=== PATIENT | female | born 1990 | race Caucasian/White ===

== ENCOUNTER → 2016-10-15 | Outpatient (CLI) | payer BC ==
[~2016-10-15] MED LIST: ACET50TA PO; IBUP100SUS PO
--- NOTE | 2016-10-15 09:54 | REP ---
OBSTETRIC SONOGRAPHY: HISTORY: Supervision of , followup anatomy. FINDINGS: Scanning demonstrates a viable single intrauterine gestation in a cephalic lie. motion is observed and heart rate is recorder 135 beats per minute. A posterior grade 0 placenta is seen without evidence of previa or abruption. Amniotic fluid is subjectively normal. Closed cervical length is measured at 4.9 cm transabdominally. No extrauterine abnormality is observed. There has been appropriate interval growth of the fetus. No anomaly is seen. The following anatomic structures are identified and felt to be sonographically unremarkable today: cranium, choroid plexus, cavum, cerebellum and posterior fossa, face and profile, lungs, four-chamber heart with left and right ventricular outflow tract views, diaphragm, left-sided stomach, abdominal wall cord insertion, three-vessel cord, kidneys and bladder, spine, upper and lower extremities. Biometry Chart: BPD 6.7 cm = 27 weeks 0 days HC 24.3 cm = 26 weeks 2 days AC 22.1 cm = 26 weeks 4 days FL 5.1 cm = 27 weeks 1 day HL 4.7 cm = 27 weeks 4 days CD 3.3 cm = 28 weeks 3 days HC/AC ratio normal 1.10. Cephalic index normal 0.78. Estimated weight 980 grams, 2 pounds 2 ounces, 34th percentile for 27 weeks 1 day. IMPRESSION: Viable single intrauterine gestation at 27 weeks 1 day by today's composite sonographic criteria. Expected gestational age estimate based on prior sonography is 27 weeks 1 day as well. COLIN by prior sonography January 13, 2017. anatomic survey is felt to be complete. Signed by Rusty Allen MD 10/15/2016 02:31 P
[2016-10-15 10:29] LABS: MEAN CORPUSCULAR HEMOGLOBIN 30.7 pg (27.0-33.0); MEAN CORPUSCULAR HGB CONC 33.2 g/dl (32.0-36.5); MEAN CORPUSCULAR VOLUME 92.6 fl (80.0-96.0); RED CELL DISTRIBUTION WIDTH 12.7 % (11.5-14.5); WHITE BLOOD COUNT 9.4 K/mm3 (4.0-10.0)
== END ==
LOC: M RAD 08:39
PROVIDERS: ATTEND Advanced Practice Midwife
DX: Z36 Encounter for antenatal screening of mother (principal); Z3A.27 27 weeks gestation of pregnancy

== ENCOUNTER → 2016-12-25 | Outpatient (REF) | payer BC | LOC: M LAB REF 12:49 | PROVIDERS: ATTEND Advanced Practice Midwife | DX: Z36 Encounter for antenatal screening of mother (principal); Z3A.00 Weeks of gestation of pregnancy not specified ==

== ENCOUNTER 2017-01-23 03:57 | Inpatient (IN) | payer BC ==
[2017-01-23] VITALS (28 sets, daily range): BP systolic 107–134; BP diastolic 60–82
[~2017-01-23] VITALS: Ht 180.3 cm; Wt 96.0 kg
[2017-01-23 05:15] LABS: MEAN CORPUSCULAR HEMOGLOBIN 27.1 pg (27.0-33.0); MEAN CORPUSCULAR HGB CONC 32.6 g/dl (32.0-36.5); MEAN CORPUSCULAR VOLUME 83.1 fl (80.0-96.0); RED CELL DISTRIBUTION WIDTH 12.5 % (11.5-14.5); WHITE BLOOD COUNT 8.9 K/mm3 (4.0-10.0)
--- NOTE | 2017-01-23 06:36 | HPE ---
DATE OF ADMISSION: 01/23/2017 REASON FOR ADMISSION: Premature rupture of membranes. HISTORY OF PRESENT ILLNESS: Mrs. Cantrell is a 26-year-old 2, para 1 who presents at 40 weeks, 2 days estimated gestational age by last menstrual period confirmed by first trimester ultrasound with complaints of leakage of clear fluid. She reports this occurred at approximately 3 a.m. She has had some irregular contractions, denies any vaginal bleeding or decreased movements. Her course has been unremarkable. She initiated care in her first trimester and has been appropriate throughout. PAST MEDICAL HISTORY: None. PAST SURGICAL HISTORY: None. PAST OBSTETRICAL HISTORY: She is 2, para 1. She has had a term vaginal delivery of a male infant. She has proven to 8 pounds, 12 ounces. MEDICATIONS: - vitamins - Colace ALLERGIES: No known drug allergies. SOCIAL HISTORY: She denies any alcohol, tobacco or drug use during her . PHYSICAL EXAMINATION: VITAL SIGNS: Stable. She is afebrile. She has a category I heart tracing with some irregular contractions on the tocometer. GENERAL APPEARANCE: Well appearing, no acute distress. LUNGS: Clear to auscultation bilaterally. CARDIOVASCULAR: Heart regular rate and rhythm. ABDOMEN: Soft, gravid. Estimated weight (EFW) 3600 grams. CERVICAL EXAM: She was 2 centimeters dilated, 80% effaced, -2 station and grossly ruptured. LABORATORY DATA: Blood type is A positive, antibody screen is negative. Rubella immune, RPR nonreactive. Hepatitis surface antigen is negative. HIV is negative. Hepatitis C is nonreactive. Chlamydia and gonorrhea screens are negative. She had a normal one hour Glucola. She is Group B Streptococcus (GBS) negative. ASSESSMENT: 1. Mrs. Cantrell is a 26-year-old 2, para 1 at 40 weeks, 2 days estimated gestational age with premature rupture of membranes. 2. Reassure status. PLAN: 1. The plan is to admit to labor and delivery, CBC, RPR, type and screen. 2. The patient has been thoroughly counseled in terms of admission to labor. I discussed augmentation of her labor with Pitocin. She is verbally consented for emergency surgery, blood products and anesthesia. She desires to proceed with admission. The plan is to reevaluate in two hours and if her exam is unchanged will proceed with augmentation with Pitocin. 3. Anticipate spontaneous vaginal delivery. MTDD
[2017-01-23] MEDS ORDERED: OXYTOCIN DRIP 30 UNITS in APPROPRIATE DILUENT 1 EA IV SCH (08:00)
[2017-01-23] MEDS ORDERED: LR 1,000 ML IV SCH (12:15)
[2017-01-23] MEDS ORDERED: BUTORPHANOL 2 MG/ML INJ (J0595) IV ONE (18:45)
[2017-01-23] MEDS ORDERED: PROMETHAZINE INJ 25 MG/ML VIAL (J2550) IV ONE (18:45)
[2017-01-23] MEDS ORDERED: PROMETHAZINE INJ 25 MG/ML VIAL (J2550) As Ordered ONE (18:52)
[2017-01-23] MEDS ORDERED: BUTORPHANOL 2 MG/ML INJ (J0595) As Ordered ONE (18:52)
[2017-01-23] MEDS ORDERED: NALOXONE INJ 0.4 MG/1 ML VIAL (J2310) As Ordered ONE (19:51)
[2017-01-23] MEDS ORDERED: METHYLERGONOVINE MALEATE 0.2 MG TAB PO PRN (20:45)
[2017-01-23] MEDS ORDERED: RHOGAM 300 MCG (1500 IU) INJ (J2790) IM SCH (20:45)
[2017-01-23] MEDS ORDERED: DOCUSATE SODIUM 100 MG CAP PO PRN (20:45)
[2017-01-23] MEDS ORDERED: IBUPROFEN 800 MG TAB PO PRN (20:45)
[2017-01-23] MEDS ORDERED: MEASLES,MUMPS,RUBELLA VACCINE INJ (MMR-II) (90707) SC SCH (20:45)
[2017-01-23] MEDS ORDERED: OXYTOCIN DRIP 30 UNITS in APPROPRIATE DILUENT 1 EA IV ONE (20:45)
[2017-01-23] MEDS ORDERED: ONDANSETRON 4MG/2ML VIAL (J2405) IV PRN (20:45)
[2017-01-23] MEDS ORDERED: ACETAMINOPHEN 500 MG TAB PO PRN (20:45)
[2017-01-23] MEDS ORDERED: DIBUCAINE 1% OINTMENT 30GM TOP PRN (20:45)
--- NOTE | 2017-01-24 01:29 | DN ---
DATE: 01/23/2017 PREDELIVERY DIAGNOSIS: A 40+ weeks gestation, labor. POSTOPERATIVE DIAGNOSIS: A 40+ weeks gestation, labor. PROCEDURE: Spontaneous vaginal delivery. ADMITTING COORDINATOR: Dr. Elvin Scott ANESTHESIA: None. ESTIMATED BLOOD LOSS: 300 mL. FINDINGS: A 9-pound 7-ounce female infant. scores 8 and 9. DELIVERY SUMMARY: After a short second stage, patient had a spontaneous delivery of a 9-pound 7-ounce female infant, scores 8 and 9. No delivery anesthesia. Shoulders delivered spontaneously with ease. The cried spontaneously and was handed to the mother. The cord was doubly clamped and cut. Placenta delivered spontaneously and appeared to be intact. The patient received intravenous (IV) Pitocin immediately after delivery of the placenta. There were no vaginal lacerations present. Sponge counts were correct.
[2017-01-24 05:49] VITALS: BP 120/69
[2017-01-24] MEDS: PRENATAL VITAMIN TAB PO SCH (07:49)
[2017-01-24 18:00] VITALS: BP 130/68
[2017-01-25 06:51] VITALS: BP 122/55
[2017-01-25] MEDS: PRENATAL VITAMIN TAB PO SCH (09:00)
[2017-01-25] MEDS ORDERED: IBUP-1114 PO (11:07)
[2017-01-25] MEDS ORDERED: PRENTAB9 PO (11:07)
[2017-01-25] MEDS ORDERED: ACET50TA PO (11:07)
== END 2017-01-25 11:40 | disposition home or self-care (01) | DRG 560 ==
LOC: M LDO 03:57 → M LDI 04:49 → M OBS 22:28
PROVIDERS: ADMIT Obstetrics & Gynecology; ATTEND Obstetrics & Gynecology
PROC: 10E0XZZ Delivery of Products of Conception, External Approach (ICD-10-PCS; principal; 2017-01-23)
DX: O42.02 Full-term premature rupture of membranes, onset of labor within 24 hours of rupture (principal); O48.0 Post-term pregnancy; Z37.0 Single live birth; Z3A.40 40 weeks gestation of pregnancy

== ENCOUNTER → 2017-04-07 | Day surgery (SDC) | payer BC ==
[~2017-04-07] VITALS: Ht 180.3 cm; Wt 95.7 kg
[~2017-04-07] MED LIST changes: +BUPIVACAINE HCL 0.25% 10 ML VIAL As Ordered ONE; +GLYCOPYRROLATE INJ 0.2 MG/ML 2 ML VIAL As Ordered ONE; +HYDROmorphone HCL 2 MG/ML 1ML VIAL (J1170) As Ordered ONE; +IBUP-1114 PO; +KETOROLAC 30 MG/ML VIAL (J1885) IV SCH; +KETOROLAC 60 MG/2 ML VIAL (J1885) As Ordered ONE; +LR 1,000 ML IV SCH; +METOCLOPRAMIDE INJ 10MG/2ML VIAL (J2765) As Ordered ONE; +MIDAZOLAM INJ 2 MG/2 ML VIAL (J2250) As Ordered ONE; +NEOSTIGMINE 1MG/ML 5 ML SYRINGE (J2710) As Ordered ONE; +ONDANSETRON 4MG/2ML VIAL (J2405) As Ordered ONE; +ONDANSETRON 4MG/2ML VIAL (J2405) IV PRN; +PERCOCET 5MG/325MG TAB PO PRN; +PRENTAB9 PO; +PROPOFOL 500 MG/50 ML VIAL As Ordered ONE; +ROCURONIUM BROMIDE 50 MG/5 ML VIAL/SYRINGE As Ordered ONE; +dexameTHASONE 4 MG/ML 1ML VIAL (J1100) As Ordered ONE; +fentaNYL 100 MCG/2 ML INJECTION (J3010) As Ordered ONE; +fentaNYL 100 MCG/2 ML INJECTION (J3010) IV PRN
[2017-04-07 06:36] LABS: MEAN CORPUSCULAR HEMOGLOBIN 26.7 pg (27.0-33.0); MEAN CORPUSCULAR HGB CONC 31.9 g/dl (32.0-36.5); MEAN CORPUSCULAR VOLUME 83.8 fl (80.0-96.0); WHITE BLOOD COUNT 7.2 K/mm3 (4.0-10.0)
[2017-04-07 06:52] LABS: CONTROL LINE HCG INT CTR LINE PRESENT
--- NOTE | 2017-04-07 08:30 | RO ---
DATE OF PROCEDURE: 04/07/2017 PREPROCEDURE DIAGNOSES: Satisfied parity with undesired fertility. POSTPROCEDURE DIAGNOSES: Satisfied parity with undesired fertility. PROCEDURE: Diagnostic operative laparoscopy with bilateral tubal ligation using Filshie clips. SURGEON: Elizabeth Tello M.D. SOW FARM MANAGER: none ANESTHESIA: General endotracheal anesthesia. ESTIMATED BLOOD LOSS: 5 mL. INTRAVENOUS FLUIDS: 1 liter of lactated Ringer solution. URINE OUTPUT: 400 mL. SPECIMENS: None. PREOPERATIVE ANTIBIOTICS: None. INFECTION CLASSIFICATION: 1. OPERATIVE FINDINGS: Patient is a 26-year-old 2 para 2 who has expressed satisfied parity with undesired fertility issues and counseled on all alternative options for contraception, desired permanent sterilization. Patient with normal appearing uterus, bilateral adnexa. Appendix appeared to be normal and normal appearing liver edge and gallbladder. DESCRIPTION OF OPERATION: After informed consent was obtained and written consent was reviewed, the patient was brought to the operating room where general endotracheal anesthesia was obtained. She was then placed in the lithotomy position, and was prepped and draped in a normal sterile fashion. A time out in the operating room was then performed identifying the patient, procedure to be performed as well as drug allergies. A bivalve speculum was then placed in the vagina revealing the cervix. The anterior lip of the cervix was grasped with a single tooth tenaculum. A Hulka tenaculum was then advanced through the cervical os for means to manipulate the uterus. The single tooth tenaculum and speculum was removed. A Rankin catheter was placed and set to gravity. Gloves were changed and attention was turned to the patient's abdomen where 0.25% Marcaine was infused in umbilical region. An incision was made in this area and a 5 mm trocar and sleeve was advanced through the incision. The laparoscope was replaced revealing intra-abdominal placement. Pneumoperitoneum was then obtained using CO2 gas. The abdomen was then surveyed showing normal uterus, bilateral adnexa. Appendix was visualized and appeared to be normal. Normal appearing liver edge and gallbladder. A second port was placed. This was approximately 2 cm above the pubis symphysis in the midline. This area was infused with 0.25% Marcaine. Incision was made in this area and an 8 mm trocar and sleeve was advanced through this incision. Left fallopian tube was followed out to the fimbriated end using a Filshie clip applicator. A Filshie clip was applied in mid isthmic portion of the left fallopian tube with good blanching noted. The Filshie clip applicator was reloaded. The right fallopian tube was then followed out to the fimbriated end in a similar fashion. Filshie clip was applied in mid isthmic portion of that fallopian tube with good blanching noted. The pneumoperitoneum was then released. Trocars and instruments were removed. Incisions were closed with #4-0 Monocryl and was dressed with Dermabond. The Hulka tenaculum was then removed. Tenaculum sites were noted to be hemostatic. Rankin catheter was also removed. The patient was then awakened from general anesthesia and taken to recovery in stable condition. Counts were correct. MTDD
[2017-04-07 09:35] VITALS: BP 120/76
== END | disposition home or self-care (01) ==
LOC: M SDC 06:18
PROVIDERS: ATTEND Obstetrics & Gynecology
DX: Z30.2 Encounter for sterilization (principal)
CPT/HCPCS: 36415; 58671; 84703; 85027; 86850; 86900; 86901; A4649; J1100; J1170; J1885; J2250; J2405; J2710; J2765; J3010

== ENCOUNTER 2017-11-14 00:12 | Inpatient (IN) | payer BC ==
[2017-11-14 01:42] LABS: CONTROL LINE UCG INT CTR LINE PRESENT; URINE PREG TEST NEGATIVE (NEGATIVE)
[2017-11-14 01:43] LABS: BASO # 0.1 10^3/uL (0.0-0.2); BASO % 0.4 % (0.0-1.0); EOS % 0.3 % (0.0-3.0); HEMOGLOBIN 12.8 g/dl (12.0-16.0); IMMATURE GRANULOCYTE % 0.3 % (0-3.0); KETONE, URINE AUTO RFX NEGATIVE (NEGATIVE); LEUKOCYTE ESTERASE UR AUTO RFX NEGATIVE (NEGATIVE); LYMPH # 1.4 10^3/uL (1.5-6.5); LYMPH % 11.7 % (24.0-44.0); MEAN CORPUSCULAR HEMOGLOBIN 27.1 pg (27.0-33.0); MEAN CORPUSCULAR VOLUME 84.7 fl (80.0-96.0); MONO # 0.7 10^3/uL (0.0-0.8); MONO % 6.1 % (0.0-5.0); MUCUS, URINE RFX SMALL (NEGATIVE); NEUTROPHILS # 9.6 10^3/uL (1.8-7.7); NEUTROPHILS % 81.2 % (36.0-66.0); NITRITE, URINE AUTO RFX NEGATIVE (NEGATIVE); PLATELET COUNT, AUTOMATED 317 10^3/uL (150-450); RBC, URINE AUTO RFX 1 /HPF (0-3); RED BLOOD COUNT 4.72 10^6/uL (4.00-5.40); RED CELL DISTRIBUTION WIDTH 13.5 % (11.5-14.5); SPECIFIC GRAVITY UR AUTO RFX 1.021 (1.002-1.035); SQUAM EPITHELIAL CELL UR AURFX 0 /HPF (0-6); WBC, URINE AUTO RFX 0 /HPF (0-3); WHITE BLOOD COUNT 11.8 10^3/uL (4.0-10.0)
[2017-11-14 02:27] LABS: ANION GAP 7 MEQ/L (8-16); BLOOD UREA NITROGEN 14 MG/DL (7-18); CALCIUM LEVEL 8.8 MG/DL (8.5-10.1); CARBON DIOXIDE LEVEL 28 MEQ/L (21-32); CHLORIDE LEVEL 108 MEQ/L (98-107); CREATININE FOR GFR 0.78 MG/DL (0.55-1.30); GLOMERULAR FILTRATION RATE > 60.0 (>60); GLUCOSE, FASTING 116 MG/DL (70-100); POTASSIUM SERUM 4.6 MEQ/L (3.5-5.1); SODIUM LEVEL 143 MEQ/L (136-145)
[2017-11-14 02:51] LABS: ALBUMIN 3.7 GM/DL (3.2-5.2); ALBUMIN/GLOBULIN RATIO 1.06 (1.00-1.93); ALKALINE PHOSPHATASE 104 U/L (45-117); ALT/SGPT 104 U/L (12-78); AST/SGOT 160 U/L (7-37); BILIRUBIN,DIRECT 0.3 MG/DL (0.0-0.2); BILIRUBIN,TOTAL 0.6 MG/DL (0.2-1.0); LIPASE 243 U/L (73-393); TOTAL PROTEIN 7.2 GM/DL (6.4-8.2)
[2017-11-14] MEDS: LR 1,000 ML IV ×3 (03:23→22:08)
[2017-11-14] MEDS ORDERED: MORPHINE 4 MG/ML 1ML VIAL (J2270) IV (03:30)
[2017-11-14] MEDS ORDERED: NORCO, ANEXSIA 5/325MG TABLET (HYDROcodone/ACETAMINOPHEN) PO (03:30)
[2017-11-14] MEDS: AMPICILLIN SOD/SULBACTAM SOD 3 GM in D5W MINI-BAG PLUS 100 ML IV ×4 (04:28→20:15)
[2017-11-14] MEDS: ONDANSETRON 4MG/2ML VIAL (J2405) IV (14:17)
[2017-11-14] MEDS ORDERED: ONDANSETRON 4MG/2ML VIAL (J2405) As Ordered (18:57)
[2017-11-14] MEDS ORDERED: LIDOCAINE 2% INJ 100 MG/5 ML SDV (FOR ANES.) As Ordered (18:57)
[2017-11-14] MEDS ORDERED: MIDAZOLAM INJ 2 MG/2 ML VIAL (J2250) As Ordered (18:57)
[2017-11-14] MEDS ORDERED: NEOSTIGMINE 10 MG/10 ML VIAL (J2710) As Ordered (18:57)
[2017-11-14] MEDS ORDERED: GLYCOPYRROLATE INJ 0.2 MG/ML 2 ML VIAL As Ordered (18:57)
[2017-11-14] MEDS ORDERED: PROPOFOL 200 MG/20 ML VIAL As Ordered (18:57)
[2017-11-14] MEDS ORDERED: dexameTHASONE 4 MG/ML 1ML VIAL (J1100) As Ordered (18:57)
[2017-11-14] MEDS ORDERED: ROCURONIUM BROMIDE 50 MG/5 ML VIAL As Ordered ×2 (18:57→20:38)
[2017-11-14] MEDS ORDERED: KETOROLAC 60 MG/2 ML VIAL (J1885) As Ordered (18:58)
[2017-11-14] MEDS ORDERED: fentaNYL 100 MCG/2 ML INJECTION (J3010) As Ordered ×2 (18:58→20:29)
[2017-11-14] MEDS ORDERED: UNASYN 1.5 GM VIAL As Ordered (19:50)
[2017-11-14] MEDS: BUPIVACAINE HCL 0.25% 30 ML VIAL As Ordered (20:25)
[2017-11-14] MEDS: LIDOCAINE 1% SDV INJ 30 ML VIAL As Ordered (20:25)
[2017-11-14] MEDS ORDERED: SUGAMMADEX SODIUM 500 MG/5 ML VIAL (BRIDION) As Ordered (20:57)
[2017-11-14] MEDS: PERCOCET 5MG/325MG TAB PO (21:25)
[2017-11-14] MEDS ORDERED: PERCOCET 5MG/325MG TAB As Ordered (21:27)
[2017-11-14] MEDS ORDERED: fentaNYL 100 MCG/2 ML INJECTION (J3010) IV (21:30)
[2017-11-14] MEDS ORDERED: MEPERIDINE INJ 25 MG/ML VIAL (J2175) IV (21:30)
[2017-11-14] MEDS ORDERED: METOCLOPRAMIDE INJ 10MG/2ML VIAL (J2765) IV (21:30)
[2017-11-14] MEDS ORDERED: ONDANSETRON 4MG/2ML VIAL (J2405) IV (21:30)
[2017-11-14] MEDS ORDERED: LR 1,000 ML IV (21:30)
[2017-11-15] MEDS: LR 1,000 ML IV (03:23)
[2017-11-15] MEDS: AMPICILLIN SOD/SULBACTAM SOD 3 GM in D5W MINI-BAG PLUS 100 ML IV ×2 (04:48→10:17)
[2017-11-15 06:48] LABS: HEMATOCRIT 40.4 % (36.0-47.0); HEMOGLOBIN 13.1 g/dl (12.0-16.0); IMMATURE GRANULOCYTE % 0.3 % (0-3.0); LYMPH # 0.6 10^3/uL (1.5-6.5); LYMPH % 8.2 % (24.0-44.0); MEAN CORPUSCULAR HEMOGLOBIN 27.5 pg (27.0-33.0); MEAN CORPUSCULAR HGB CONC 32.4 g/dl (32.0-36.5); MEAN CORPUSCULAR VOLUME 84.7 fl (80.0-96.0); MONO # 0.2 10^3/uL (0.0-0.8); MONO % 2.4 % (0.0-5.0); NEUTROPHILS # 6.3 10^3/uL (1.8-7.7); NEUTROPHILS % 89.1 % (36.0-66.0); PLATELET COUNT, AUTOMATED 312 10^3/uL (150-450); RED BLOOD COUNT 4.77 10^6/uL (4.00-5.40); RED CELL DISTRIBUTION WIDTH 13.3 % (11.5-14.5)
[2017-11-15 07:20] LABS: ALBUMIN 3.2 GM/DL (3.2-5.2); ALBUMIN/GLOBULIN RATIO 0.84 (1.00-1.93); ALKALINE PHOSPHATASE 202 U/L (45-117); ALT/SGPT 1166 U/L (12-78); ANION GAP 6 MEQ/L (8-16); AST/SGOT 676 U/L (7-37); BILIRUBIN,TOTAL 1.3 MG/DL (0.2-1.0); BLOOD UREA NITROGEN 9 MG/DL (7-18); CALCIUM LEVEL 8.4 MG/DL (8.5-10.1); CARBON DIOXIDE LEVEL 27 MEQ/L (21-32); CHLORIDE LEVEL 106 MEQ/L (98-107); CREATININE FOR GFR 0.66 MG/DL (0.55-1.30); GLOMERULAR FILTRATION RATE > 60.0 (>60); GLUCOSE, FASTING 126 MG/DL (70-100); POTASSIUM SERUM 4.2 MEQ/L (3.5-5.1); SODIUM LEVEL 139 MEQ/L (136-145)
[2017-11-15] MEDS: KETOROLAC 30 MG/ML VIAL (J1885) IV (10:18)
[2017-11-15] MEDS: NORCO, ANEXSIA 5/325MG TABLET (HYDROcodone/ACETAMINOPHEN) PO (13:35)
== END 2017-11-15 13:40 | disposition home or self-care (01) | DRG 263 ==
LOC: M ED 00:12 → M ED INP 03:23 → M MS4PR 04:50 → M PED 21:42
PROC: 0FT44ZZ Resection of Gallbladder, Percutaneous Endoscopic Approach (ICD-10-PCS; principal; 2017-11-14 07:42)
DX: K80.00 Calculus of gallbladder with acute cholecystitis without obstruction (principal); R94.5 Abnormal results of liver function studies

== ENCOUNTER → 2017-11-27 | Outpatient (CLI) | payer BC ==
[2017-11-27 17:49] LABS: ALBUMIN 3.9 GM/DL (3.2-5.2); ALBUMIN/GLOBULIN RATIO 1.15 (1.00-1.93); ALKALINE PHOSPHATASE 107 U/L (45-117); ALT/SGPT 49 U/L (12-78); AST/SGOT 13 U/L (7-37); BILIRUBIN,DIRECT 0.1 MG/DL (0.0-0.2); BILIRUBIN,TOTAL 0.4 MG/DL (0.2-1.0); TOTAL PROTEIN 7.3 GM/DL (6.4-8.2)
== END ==
LOC: M LAB 16:43
DX: K80.20 Calculus of gallbladder without cholecystitis without obstruction (principal)
CPT/HCPCS: 80076

== ENCOUNTER 2025-07-22 20:14 | Emergency (ER) | payer BC ==
[~2025-07-22] VITALS: Ht 177.8 cm; Wt 110.0 kg
[~2025-07-22 20:14] MED LIST changes: -ACET50TA PO; -BUPIVACAINE HCL 0.25% 10 ML VIAL As Ordered ONE; -GLYCOPYRROLATE INJ 0.2 MG/ML 2 ML VIAL As Ordered ONE; -HYDROmorphone HCL 2 MG/ML 1ML VIAL (J1170) As Ordered ONE; +IBUP100S44 PO; -IBUP100SUS PO; +IBUP1TAB7 PO; -KETOROLAC 30 MG/ML VIAL (J1885) IV SCH; -KETOROLAC 60 MG/2 ML VIAL (J1885) As Ordered ONE; -LR 1,000 ML IV SCH; +MAPA500T17 PO; +MAPA500T2 PO; -METOCLOPRAMIDE INJ 10MG/2ML VIAL (J2765) As Ordered ONE; -MIDAZOLAM INJ 2 MG/2 ML VIAL (J2250) As Ordered ONE; -NEOSTIGMINE 1MG/ML 5 ML SYRINGE (J2710) As Ordered ONE; -ONDANSETRON 4MG/2ML VIAL (J2405) As Ordered ONE; -ONDANSETRON 4MG/2ML VIAL (J2405) IV PRN; -PERCOCET 5MG/325MG TAB PO PRN; -PROPOFOL 500 MG/50 ML VIAL As Ordered ONE; -ROCURONIUM BROMIDE 50 MG/5 ML VIAL/SYRINGE As Ordered ONE; -dexameTHASONE 4 MG/ML 1ML VIAL (J1100) As Ordered ONE; -fentaNYL 100 MCG/2 ML INJECTION (J3010) As Ordered ONE; -fentaNYL 100 MCG/2 ML INJECTION (J3010) IV PRN
[2025-07-23] MEDS: LIDOCAINE 1% MDV 20 ML VIAL IM ONE (01:52)
[2025-07-23] MEDS: TETANUS/DIPHTH/ACEL. PERTUSSIS 0.5 ML SYR IM.IMMUN ONE (01:55)
[2025-07-23 02:44] VITALS: BP 165/116; TEMP 98.1; O2SAT 98
== END 2025-07-23 02:50 | disposition home or self-care (01) ==
LOC: M ED 20:14
DX: S61.411A Laceration without foreign body of right hand, initial encounter (principal); W26.8XXA Contact with other sharp object(s), not elsewhere classified, initial encounter; Y92.000 Kitchen of unspecified non-institutional (private) residence as the place of occurrence of the external cause; Y93.89 Activity, other specified; Y99.9 Unspecified external cause status; Z91.02 Food additives allergy status; Z23 Encounter for immunization